=== PATIENT | male | born 2000 | race Caucasian/White ===

== ENCOUNTER 2022-04-26 17:29 | Emergency (ER) | payer OTHER, SELFPAY ==
[2022-04-26 17:55] VITALS: BP 133/80; PULSE 74; RESP 22; TEMP 36.9; O2SAT 100
--- NOTE | 2022-04-26 17:57 | DI.RAD.S_ITS ---
PROCEDURE: XR FINGER LT MIN 2V INDICATIONS: injury TECHNIQUE: AP hand, 2 views of the left thumb finger(s) acquired. COMPARISON: None. FINDINGS: Bones: No definite fractures or dislocations. No suspicious bony lesions. Soft tissues: No suspicious soft tissue calcifications. There is soft tissue swelling of the left thumb and thenar region. IMPRESSION: Left thumb soft tissue swelling without underlying fracture or dislocation. If there are persistent symptoms or clinical suspicion for pathology, then repeat radiographs or advanced imaging (CT or MRI) may be considered for further evaluation. Dictated by: Urban Madden M.D. on 04/26/2022 at 18:30 Approved by: Urban Madden M.D. on 04/26/2022 at 18:31
--- NOTE | 2022-04-26 23:10 | PC.NURSE ---
To room from triage - assumed care of pt at this time
--- NOTE | 2022-04-26 23:30 | PC.NURSE ---
Awaiting MD evaluation - no needs voiced - PWD in NAD
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
== END 2022-04-27 00:20 | disposition home or self-care (01) ==
PROVIDERS: Emergency Provider Emergency Medicine
DX: S63.602A Unspecified sprain of left thumb, initial encounter (principal); W22.8XXA Striking against or struck by other objects, initial encounter; V89.2XXA Person injured in unspecified motor-vehicle accident, traffic, initial encounter
CPT/HCPCS: 73140; 99282; 99283

== ENCOUNTER 2023-11-10 22:25 | Emergency (ER) | payer OTHER, SELFPAY ==
[2023-11-10 22:30] VITALS: BP 136/71; PULSE 103; RESP 16; TEMP 37.1; O2SAT 96; BMI 26.6
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
--- NOTE | 2023-11-10 22:36 | DI.RAD.S_ITS ---
PROCEDURE: XR FOOT LT MIN 3V INDICATIONS: injury TECHNIQUE: 3 views of the foot were acquired. COMPARISON: None. FINDINGS: Bones: No fractures or dislocations. No suspicious bony lesions. Soft tissues: No tibiotalar joint effusion. Achilles tendon appears normal. IMPRESSION: No acute bony abnormality. If there are persistent symptoms or clinical suspicion for pathology, then repeat radiographs or advanced imaging (CT or MRI) may be considered for further evaluation. Dictated by: Urban Madden M.D. on 11/10/2023 at 22:56 Approved by: Urban Madden M.D. on 11/10/2023 at 22:57
--- NOTE | 2023-11-10 22:36 | DI.RAD.S_ITS ---
PROCEDURE: XR ANKLE LT MIN 3V INDICATIONS: injury TECHNIQUE: 3 views of the ankle were acquired. COMPARISON: None. FINDINGS: Bones: Nondisplaced transverse medial malleolar fracture. Ankle mortise is normally aligned. No suspicious bony lesions. Soft tissues: No tibiotalar joint effusion. Achilles tendon appears normal. IMPRESSION: Medial malleolar transverse fracture. Dictated by: Urban Madden M.D. on 11/10/2023 at 22:52 Approved by: Urban Madden M.D. on 11/10/2023 at 22:53
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
[2023-11-11 00:40] VITALS: BP 128/70; PULSE 88; RESP 18; O2SAT 100
== END 2023-11-11 00:43 | disposition home or self-care (01) ==
PROVIDERS: Emergency Provider Emergency Medicine
DX: S82.55XA Nondisplaced fracture of medial malleolus of left tibia, initial encounter for closed fracture (principal); X58.XXXA Exposure to other specified factors, initial encounter; Y93.55 Activity, bike riding
CPT/HCPCS: 29515; 73610; 73630; 99282; 99283